=== PATIENT | female | born 1940 | race Caucasian/White ===

== ENCOUNTER → 2017-03-29 | Outpatient (REF) | payer MEDICARE ==
[~2017-03-29] MED LIST: ADV500INH INH; ALDA25TA4 PO; ALLE12TA31 PO; BENI1TAB PO; CALCTAB68 PO; DOCU10CA PO; LYRI75CA PO; MOBI4TAB PO; MULTCAP PO; PATA0.6S; PROT1TAB2 PO; SING10TA32 PO; ULTR50TA8 PO; VITA400T13 PO
== END ==
LOC: M SFHCPLAZ 15:52 → M LAB REF 15:52
PROVIDERS: ATTEND Family Medicine
DX: D04.30 Carcinoma in situ of skin of unspecified part of face (principal)

== ENCOUNTER → 2017-06-15 | Outpatient (REF) | payer MEDICARE | LOC: M SFHCPLAZ 11:31 | PROVIDERS: ATTEND Family Medicine | DX: Z85.828 Personal history of other malignant neoplasm of skin (principal) ==

== ENCOUNTER 2017-10-16 10:21 | Inpatient (IN) | payer OTHER, MEDICARE ==
[2017-10-16] MEDS: OLMESARTAN MEDOXOMIL 20 MG TAB (BENICAR) PO (09:00)
[2017-10-16] MEDS: NALOXONE INJ 0.4 MG/1 ML VIAL (J2310) IV (11:27)
[2017-10-16] MEDS: ADACEL/BOOSTRIX VACCINE (DIPHTH/PERTUSS/ACELL/TETANUS)0.5ML SYR (90715) IM (11:32)
[2017-10-16 11:39] LABS: BASO # 0.1 10^3/uL (0.0-0.2); BASO % 0.8 % (0.0-1.0); EOS # 0.2 10^3/uL (0.0-0.50); EOS % 1.3 % (0.0-3.0); HEMATOCRIT 36.3 % (36.0-47.0); HEMOGLOBIN 12.2 g/dl (12.0-16.0); IMMATURE GRANULOCYTE # 0.1 10^3/uL (0-0); LYMPH # 2.3 10^3/uL (1.5-4.5); LYMPH % 16.9 % (24.0-44.0); MEAN CORPUSCULAR HEMOGLOBIN 32.4 pg (27.0-33.0); MEAN CORPUSCULAR HGB CONC 33.6 g/dl (32.0-36.5); MEAN CORPUSCULAR VOLUME 96.3 fl (80.0-96.0); MONO # 1.2 10^3/uL (0.0-0.8); MONO % 9.1 % (0.0-5.0); NEUTROPHILS # 9.7 10^3/uL (1.8-7.7); NEUTROPHILS % 70.9 % (36.0-66.0); PLATELET COUNT, AUTOMATED 379 10^3/uL (150-450); RED BLOOD COUNT 3.77 10^6/uL (4.00-5.40); RED CELL DISTRIBUTION WIDTH 13.6 % (11.5-14.5); WHITE BLOOD COUNT 13.6 10^3/uL (4.0-10.0)
[2017-10-16 11:50] LABS: INR 0.99; PARTIAL THROMBOPLASTIN TIME 28.6 SECONDS (26.8-37.9); PROTHROMBIN TIME 13.2 SECONDS (12.4-14.5)
[2017-10-16 12:03] LABS: ALBUMIN 3.3 GM/DL (3.2-5.2); ALBUMIN/GLOBULIN RATIO 0.87 (1.00-1.93); ALKALINE PHOSPHATASE 49 U/L (45-117); ALT/SGPT 21 U/L (12-78); ANION GAP 7 MEQ/L (8-16); AST/SGOT 37 U/L (7-37); BILIRUBIN,DIRECT 0.1 MG/DL (0.0-0.2); BILIRUBIN,TOTAL 0.4 MG/DL (0.2-1.0); BLOOD UREA NITROGEN 22 MG/DL (7-18); CALCIUM LEVEL 9.5 MG/DL (8.8-10.2); CARBON DIOXIDE LEVEL 29 MEQ/L (21-32); CHLORIDE LEVEL 102 MEQ/L (98-107); CREATININE FOR GFR 1.36 MG/DL (0.55-1.02); GLOMERULAR FILTRATION RATE 40.1 (>39); GLUCOSE, FASTING 95 MG/DL (83-110); POTASSIUM SERUM 3.8 MEQ/L (3.5-5.1); SODIUM LEVEL 138 MEQ/L (136-145); TOTAL PROTEIN 7.1 GM/DL (6.4-8.2)
[2017-10-16] MEDS ORDERED: ISOVUE-370 76% 100ML VIAL (Q9967) As Ordered (12:05)
[2017-10-16] MEDS: CEFAZOLIN SOD 1 GM in APPROPRIATE DILUENT 1 EA IV (15:00)
[2017-10-16] MEDS ORDERED: DOCUSATE SODIUM 100 MG CAP PO (15:00)
[2017-10-16] MEDS: NORCO, ANEXSIA 5/325MG TABLET (HYDROcodone/ACETAMINOPHEN) PO (16:54)
[2017-10-16] MEDS: MULTIVITAMINS/MINERALS THERAP 1 TAB PO (18:47)
[2017-10-16] MEDS: hydroCHLOROthiazide 25 MG TAB PO (18:47)
[2017-10-16] MEDS: ADVAIR HFA 230/21MCG INHALER INH (20:25)
[2017-10-16] MEDS: CALCIUM/VITAMIN D 500 MG TAB PO (21:30)
[2017-10-16] MEDS: VITAMIN D (CHOLECALCIFEROL) 400 INTERNATIONAL UNITS TAB PO (21:30)
[2017-10-16] MEDS: SENOKOT S TAB PO (21:30)
[2017-10-16] MEDS: CARVedilol 3.125 MG TAB PO (21:31)
[2017-10-16] MEDS: FLUTICASONE PROP 0.05% NASAL SPRAY 16 GM (FLONASE) (21:31)
[2017-10-16] MEDS: PREGABALIN 75 MG CAP(LYRICA) PO (21:31)
[2017-10-16] MEDS: PANTOPRAZOLE 40MG TAB (PROTONIX) PO (21:31)
[2017-10-17] MEDS: NORCO, ANEXSIA 5/325MG TABLET (HYDROcodone/ACETAMINOPHEN) PO ×2 (00:21→20:55)
[2017-10-17] MEDS: MONTELUKAST 10 MG TAB PO ×2 (05:08→20:55)
[2017-10-17 07:12] LABS: BEDSIDE GLUCOSE 132 MG/DL (83-110)
[2017-10-17] MEDS: ADVAIR HFA 230/21MCG INHALER INH ×2 (07:19→23:02)
[2017-10-17 08:25] LABS: TROPONIN I < 0.02 NG/ML (< 0.10)
[2017-10-17 08:25] LABS: CK-MB VALUE MASS 3.5 NG/ML (0.0-3.6)
[2017-10-17] MEDS: FLUTICASONE PROP 0.05% NASAL SPRAY 16 GM (FLONASE) ×2 (09:00→20:53)
[2017-10-17] MEDS: CARVedilol 3.125 MG TAB PO (09:00)
[2017-10-17] MEDS: CALCIUM/VITAMIN D 500 MG TAB PO ×2 (09:52→20:53)
[2017-10-17] MEDS: SENOKOT S TAB PO ×2 (09:52→20:56)
[2017-10-17] MEDS: VITAMIN D (CHOLECALCIFEROL) 400 INTERNATIONAL UNITS TAB PO ×2 (09:52→20:53)
[2017-10-17] MEDS: PREGABALIN 75 MG CAP(LYRICA) PO ×2 (09:52→20:53)
[2017-10-17] MEDS: MULTIVITAMINS/MINERALS THERAP 1 TAB PO (09:52)
[2017-10-17] MEDS: PANTOPRAZOLE 40MG TAB (PROTONIX) PO ×2 (09:52→20:55)
[2017-10-17] MEDS: ONDANSETRON 4MG/2ML VIAL (J2405) IV (09:54)
[2017-10-17 10:28] LABS: HEMATOCRIT 33.8 % (36.0-47.0); HEMOGLOBIN 11.2 g/dl (12.0-16.0); MEAN CORPUSCULAR HGB CONC 33.1 g/dl (32.0-36.5); MEAN CORPUSCULAR VOLUME 96.6 fl (80.0-96.0); PLATELET COUNT, AUTOMATED 362 10^3/uL (150-450); WHITE BLOOD COUNT 12.2 10^3/uL (4.0-10.0)
[2017-10-17] MEDS: OLMESARTAN MEDOXOMIL 20 MG TAB (BENICAR) PO (10:46)
[2017-10-17] MEDS: hydroCHLOROthiazide 25 MG TAB PO (10:47)
[2017-10-17] MEDS: NS 1,000 ML IV (11:21)
[2017-10-17] MEDS: ACETAMINOPHEN TAB 650MG DOSE (2X325MG) PO (11:21)
[2017-10-17 12:11] LABS: HEMOGLOBIN 9.7 g/dl (12.0-16.0)
[2017-10-17] MEDS: LR 1,000 ML IV ×2 (12:12→20:56)
[2017-10-17] MEDS ORDERED: ISOVUE-370 76% 100ML VIAL (Q9967) As Ordered (12:49)
[2017-10-17 16:08] LABS: HEMATOCRIT 28.4 % (36.0-47.0); HEMOGLOBIN 9.6 g/dl (12.0-16.0)
[2017-10-18] MEDS: ACETAMINOPHEN TAB 650MG DOSE (2X325MG) PO ×3 (01:37→17:15)
[2017-10-18] MEDS: NORCO, ANEXSIA 5/325MG TABLET (HYDROcodone/ACETAMINOPHEN) PO ×2 (06:35→20:40)
[2017-10-18] MEDS: ADVAIR HFA 230/21MCG INHALER INH ×2 (08:19→21:16)
[2017-10-18] MEDS: FLUTICASONE PROP 0.05% NASAL SPRAY 16 GM (FLONASE) ×2 (08:59→21:00)
[2017-10-18] MEDS: OLMESARTAN MEDOXOMIL 20 MG TAB (BENICAR) PO (09:00)
[2017-10-18] MEDS: VITAMIN D (CHOLECALCIFEROL) 400 INTERNATIONAL UNITS TAB PO ×2 (09:01→20:40)
[2017-10-18] MEDS: CALCIUM/VITAMIN D 500 MG TAB PO ×2 (09:01→20:40)
[2017-10-18] MEDS: SENOKOT S TAB PO ×2 (09:01→20:41)
[2017-10-18] MEDS: MULTIVITAMINS/MINERALS THERAP 1 TAB PO (09:02)
[2017-10-18] MEDS: PREGABALIN 75 MG CAP(LYRICA) PO ×2 (09:02→20:40)
[2017-10-18] MEDS: hydroCHLOROthiazide 25 MG TAB PO (09:02)
[2017-10-18] MEDS: PANTOPRAZOLE 40MG TAB (PROTONIX) PO ×2 (09:02→20:40)
[2017-10-18 09:04] LABS: HEMATOCRIT 22.3 % (36.0-47.0); MEAN CORPUSCULAR HEMOGLOBIN 32.4 pg (27.0-33.0); MEAN CORPUSCULAR HGB CONC 32.7 g/dl (32.0-36.5); MEAN CORPUSCULAR VOLUME 99.1 fl (80.0-96.0); PLATELET COUNT, AUTOMATED 263 10^3/uL (150-450); RED BLOOD COUNT 2.25 10^6/uL (4.00-5.40); RED CELL DISTRIBUTION WIDTH 14.2 % (11.5-14.5); WHITE BLOOD COUNT 13.9 10^3/uL (4.0-10.0)
[2017-10-18] MEDS: CARVedilol 3.125 MG TAB PO ×2 (09:10→21:00)
[2017-10-18] MEDS: INFLUENZA VIRUS VACCINE HIGH DOSE 0.5 ML SYRINGE (90662) IM (09:11)
[2017-10-18 09:24] LABS: HEMOGLOBIN 7.3 g/dl (12.0-16.0)
[2017-10-18 09:33] LABS: ANION GAP 8 MEQ/L (8-16); BLOOD UREA NITROGEN 81 MG/DL (7-18); CALCIUM LEVEL 8.3 MG/DL (8.8-10.2); CARBON DIOXIDE LEVEL 27 MEQ/L (21-32); CHLORIDE LEVEL 105 MEQ/L (98-107); CREATININE FOR GFR 1.36 MG/DL (0.55-1.02); GLOMERULAR FILTRATION RATE 40.1 (>39); GLUCOSE, FASTING 156 MG/DL (83-110); POTASSIUM SERUM 4.3 MEQ/L (3.5-5.1); SODIUM LEVEL 140 MEQ/L (136-145)
[2017-10-18 14:33] LABS: IMMEDIATE SPIN CROSSMATCH 1 2
[2017-10-18] MEDS: LR 1,000 ML IV (17:14)
[2017-10-18 18:16] LABS: HEMATOCRIT 31.4 % (36.0-47.0)
[2017-10-18 18:17] LABS: HEMOGLOBIN 10.7 g/dl (12.0-16.0)
[2017-10-18] MEDS: MONTELUKAST 10 MG TAB PO (20:40)
[2017-10-19] MEDS: NORCO, ANEXSIA 5/325MG TABLET (HYDROcodone/ACETAMINOPHEN) PO ×3 (00:46→16:53)
[2017-10-19] MEDS: MORPHINE 4 MG/ML 1ML SYRINGE IV (01:30)
[2017-10-19] MEDS: LR 1,000 ML IV ×3 (04:10→14:30)
[2017-10-19] MEDS: ADVAIR HFA 230/21MCG INHALER INH ×2 (08:11→20:12)
[2017-10-19] MEDS: PREGABALIN 75 MG CAP(LYRICA) PO ×2 (08:20→20:57)
[2017-10-19] MEDS: MULTIVITAMINS/MINERALS THERAP 1 TAB PO (08:20)
[2017-10-19] MEDS: PANTOPRAZOLE 40MG TAB (PROTONIX) PO ×2 (08:20→20:57)
[2017-10-19] MEDS: hydroCHLOROthiazide 25 MG TAB PO (08:20)
[2017-10-19] MEDS: CALCIUM/VITAMIN D 500 MG TAB PO ×2 (08:20→20:57)
[2017-10-19] MEDS: VITAMIN D (CHOLECALCIFEROL) 400 INTERNATIONAL UNITS TAB PO ×2 (08:21→20:57)
[2017-10-19] MEDS: CARVedilol 3.125 MG TAB PO ×2 (08:21→20:45)
[2017-10-19] MEDS: FLUTICASONE PROP 0.05% NASAL SPRAY 16 GM (FLONASE) ×2 (08:21→20:57)
[2017-10-19] MEDS: SENOKOT S TAB PO ×3 (08:21→20:57)
[2017-10-19] MEDS: OLMESARTAN MEDOXOMIL 20 MG TAB (BENICAR) PO (08:21)
[2017-10-19 08:51] LABS: HEMATOCRIT 27.8 % (36.0-47.0); HEMOGLOBIN 9.4 g/dl (12.0-16.0); MEAN CORPUSCULAR HEMOGLOBIN 30.5 pg (27.0-33.0); MEAN CORPUSCULAR HGB CONC 33.8 g/dl (32.0-36.5); MEAN CORPUSCULAR VOLUME 90.3 fl (80.0-96.0); PLATELET COUNT, AUTOMATED 201 10^3/uL (150-450); RED BLOOD COUNT 3.08 10^6/uL (4.00-5.40); RED CELL DISTRIBUTION WIDTH 16.2 % (11.5-14.5); WHITE BLOOD COUNT 11.6 10^3/uL (4.0-10.0)
[2017-10-19] MEDS ORDERED: PROPOFOL 200 MG/20 ML VIAL As Ordered (13:41)
[2017-10-19] MEDS ORDERED: LIDOCAINE 2% INJ 100 MG/5 ML SDV (FOR ANES.) As Ordered (13:41)
[2017-10-19] MEDS ORDERED: fentaNYL 100 MCG/2 ML INJECTION (J3010) IV (14:30)
[2017-10-19] MEDS ORDERED: ONDANSETRON 4MG/2ML VIAL (J2405) IV (14:30)
[2017-10-19] MEDS: ACETAMINOPHEN TAB 650MG DOSE (2X325MG) PO (20:56)
[2017-10-19] MEDS: MONTELUKAST 10 MG TAB PO (20:57)
[2017-10-20] MEDS: NORCO, ANEXSIA 5/325MG TABLET (HYDROcodone/ACETAMINOPHEN) PO ×4 (02:28→21:00)
[2017-10-20 06:26] LABS: HEMOGLOBIN 8.4 g/dl (12.0-16.0); MEAN CORPUSCULAR HEMOGLOBIN 31.1 pg (27.0-33.0); MEAN CORPUSCULAR HGB CONC 33.6 g/dl (32.0-36.5); MEAN CORPUSCULAR VOLUME 92.6 fl (80.0-96.0); PLATELET COUNT, AUTOMATED 193 10^3/uL (150-450); RED CELL DISTRIBUTION WIDTH 15.8 % (11.5-14.5); WHITE BLOOD COUNT 8.4 10^3/uL (4.0-10.0)
[2017-10-20 06:39] LABS: ANION GAP 7 MEQ/L (8-16); BLOOD UREA NITROGEN 37 MG/DL (7-18); CALCIUM LEVEL 8.2 MG/DL (8.8-10.2); CARBON DIOXIDE LEVEL 27 MEQ/L (21-32); CHLORIDE LEVEL 108 MEQ/L (98-107); CREATININE FOR GFR 1.09 MG/DL (0.55-1.02); GLOMERULAR FILTRATION RATE 51.8 (>39); GLUCOSE, FASTING 97 MG/DL (83-110); POTASSIUM SERUM 3.9 MEQ/L (3.5-5.1); SODIUM LEVEL 142 MEQ/L (136-145)
[2017-10-20] MEDS: ADVAIR HFA 230/21MCG INHALER INH ×2 (07:34→21:13)
[2017-10-20] MEDS: hydroCHLOROthiazide 25 MG TAB PO (08:34)
[2017-10-20] MEDS: PANTOPRAZOLE 40MG TAB (PROTONIX) PO ×2 (08:34→21:01)
[2017-10-20] MEDS: OLMESARTAN MEDOXOMIL 20 MG TAB (BENICAR) PO (08:34)
[2017-10-20] MEDS: FLUTICASONE PROP 0.05% NASAL SPRAY 16 GM (FLONASE) ×2 (08:35→20:59)
[2017-10-20] MEDS: MULTIVITAMINS/MINERALS THERAP 1 TAB PO (08:35)
[2017-10-20] MEDS: CALCIUM/VITAMIN D 500 MG TAB PO ×2 (08:35→21:01)
[2017-10-20] MEDS: PREGABALIN 75 MG CAP(LYRICA) PO ×2 (08:35→21:01)
[2017-10-20] MEDS: VITAMIN D (CHOLECALCIFEROL) 400 INTERNATIONAL UNITS TAB PO ×2 (08:35→21:00)
[2017-10-20] MEDS: SENOKOT S TAB PO ×3 (08:35→21:01)
[2017-10-20] MEDS: CARVedilol 3.125 MG TAB PO ×2 (08:35→21:02)
[2017-10-20] MEDS: MONTELUKAST 10 MG TAB PO (20:59)
[2017-10-21] MEDS: NORCO, ANEXSIA 5/325MG TABLET (HYDROcodone/ACETAMINOPHEN) PO (02:27)
[2017-10-21 06:11] LABS: BASO # 0.1 10^3/uL (0.0-0.2); BASO % 0.9 % (0.0-1.0); EOS # 0.5 10^3/uL (0.0-0.50); EOS % 4.6 % (0.0-3.0); HEMATOCRIT 26.4 % (36.0-47.0); HEMOGLOBIN 8.7 g/dl (12.0-16.0); IMMATURE GRANULOCYTE % 0.4 % (0-0); LYMPH # 2.5 10^3/uL (1.5-4.5); LYMPH % 24.6 % (24.0-44.0); MEAN CORPUSCULAR HEMOGLOBIN 30.9 pg (27.0-33.0); MEAN CORPUSCULAR VOLUME 93.6 fl (80.0-96.0); MONO # 1.4 10^3/uL (0.0-0.8); MONO % 13.7 % (0.0-5.0); NEUTROPHILS # 5.7 10^3/uL (1.8-7.7); NEUTROPHILS % 55.8 % (36.0-66.0); PLATELET COUNT, AUTOMATED 234 10^3/uL (150-450); RED BLOOD COUNT 2.82 10^6/uL (4.00-5.40); RED CELL DISTRIBUTION WIDTH 15.9 % (11.5-14.5); WHITE BLOOD COUNT 10.2 10^3/uL (4.0-10.0)
[2017-10-21 06:30] LABS: ALBUMIN 2.4 GM/DL (3.2-5.2); ALBUMIN/GLOBULIN RATIO 0.75 (1.00-1.93); ALKALINE PHOSPHATASE 38 U/L (45-117); ALT/SGPT 20 U/L (12-78); ANION GAP 6 MEQ/L (8-16); AST/SGOT 27 U/L (7-37); BILIRUBIN,TOTAL 0.5 MG/DL (0.2-1.0); BLOOD UREA NITROGEN 28 MG/DL (7-18); CALCIUM LEVEL 8.6 MG/DL (8.8-10.2); CARBON DIOXIDE LEVEL 29 MEQ/L (21-32); CHLORIDE LEVEL 107 MEQ/L (98-107); GLOMERULAR FILTRATION RATE 51.3 (>39); GLUCOSE, FASTING 101 MG/DL (83-110); POTASSIUM SERUM 3.8 MEQ/L (3.5-5.1); SODIUM LEVEL 142 MEQ/L (136-145); TOTAL PROTEIN 5.6 GM/DL (6.4-8.2)
[2017-10-21] MEDS: CARVedilol 3.125 MG TAB PO (07:24)
[2017-10-21] MEDS: ADVAIR HFA 230/21MCG INHALER INH (08:11)
[2017-10-21] MEDS: PREGABALIN 75 MG CAP(LYRICA) PO (08:12)
[2017-10-21] MEDS: PANTOPRAZOLE 40MG TAB (PROTONIX) PO (08:12)
[2017-10-21] MEDS: VITAMIN D (CHOLECALCIFEROL) 400 INTERNATIONAL UNITS TAB PO (08:12)
[2017-10-21] MEDS: hydroCHLOROthiazide 25 MG TAB PO (08:13)
[2017-10-21] MEDS: SENOKOT S TAB PO (08:13)
[2017-10-21] MEDS: MULTIVITAMINS/MINERALS THERAP 1 TAB PO (08:13)
[2017-10-21] MEDS: OLMESARTAN MEDOXOMIL 20 MG TAB (BENICAR) PO (08:13)
[2017-10-21] MEDS: CALCIUM/VITAMIN D 500 MG TAB PO (08:13)
[2017-10-21] MEDS: FLUTICASONE PROP 0.05% NASAL SPRAY 16 GM (FLONASE) (08:13)
== END 2017-10-21 14:28 | disposition home or self-care (01) | DRG 254 ==
LOC: M ED 10:21 → M ED INP 14:53 → M MSPAV 18:33
PROC: 0DJ08ZZ Inspection of Upper Intestinal Tract, Via Natural or Artificial Opening Endoscopic (ICD-10-PCS; principal; 2017-10-19 13:21)
PROC: 30233N1 Transfusion of Nonautologous Red Blood Cells into Peripheral Vein, Percutaneous Approach (ICD-10-PCS; 2017-10-19 13:38)
DX: S36.892A Contusion of other intra-abdominal organs, initial encounter (principal); D62 Acute posthemorrhagic anemia; N18.3 Chronic kidney disease, stage 3 (moderate); K25.9 Gastric ulcer, unspecified as acute or chronic, without hemorrhage or perforation; I12.9 Hypertensive chronic kidney disease with stage 1 through stage 4 chronic kidney disease, or unspecified chronic kidney disease; S61.402A Unspecified open wound of left hand, initial encounter; E78.00 Pure hypercholesterolemia, unspecified; K44.9 Diaphragmatic hernia without obstruction or gangrene; S50.12XA Contusion of left forearm, initial encounter; S60.222A Contusion of left hand, initial encounter; S00.531A Contusion of lip, initial encounter; V49.40XA Driver injured in collision with unspecified motor vehicles in traffic accident, initial encounter; Y92.410 Unspecified street and highway as the place of occurrence of the external cause; Y93.89 Activity, other specified; Z90.81 Acquired absence of spleen; Z79.82 Long term (current) use of aspirin; Z79.899 Other long term (current) drug therapy

== ENCOUNTER → 2017-10-25 | Outpatient (CLI) | payer OTHER, MEDICARE ==
[2017-10-25 15:49] LABS: BASO # 0.1 10^3/uL (0.0-0.2); BASO % 1.1 % (0.0-1.0); EOS # 0.4 10^3/uL (0.0-0.50); EOS % 3.5 % (0.0-3.0); HEMATOCRIT 30.7 % (36.0-47.0); HEMOGLOBIN 9.9 g/dl (12.0-16.0); IMMATURE GRANULOCYTE # 0.1 10^3/uL (0-0); IMMATURE GRANULOCYTE % 0.6 % (0-0); LYMPH % 19.7 % (24.0-44.0); MEAN CORPUSCULAR HEMOGLOBIN 30.7 pg (27.0-33.0); MEAN CORPUSCULAR HGB CONC 32.2 g/dl (32.0-36.5); MEAN CORPUSCULAR VOLUME 95.3 fl (80.0-96.0); MONO # 1.4 10^3/uL (0.0-0.8); MONO % 13.4 % (0.0-5.0); NEUTROPHILS # 6.4 10^3/uL (1.8-7.7); NEUTROPHILS % 61.7 % (36.0-66.0); PLATELET COUNT, AUTOMATED 494 10^3/uL (150-450); RED BLOOD COUNT 3.22 10^6/uL (4.00-5.40); RED CELL DISTRIBUTION WIDTH 15.9 % (11.5-14.5); WHITE BLOOD COUNT 10.3 10^3/uL (4.0-10.0)
== END ==
LOC: M LAB 15:24
DX: D64.9 Anemia, unspecified (principal)
CPT/HCPCS: 85025

== ENCOUNTER → 2017-10-30 | Outpatient (REF) | payer MEDICARE ==
[2017-10-30 20:41] LABS: HEMATOCRIT 33.5 % (36.0-47.0); HEMOGLOBIN 10.5 g/dl (12.0-16.0); MEAN CORPUSCULAR HEMOGLOBIN 31.3 pg (27.0-33.0); MEAN CORPUSCULAR HGB CONC 31.3 g/dl (32.0-36.5); PLATELET COUNT, AUTOMATED 652 10^3/uL (150-450); RED BLOOD COUNT 3.35 10^6/uL (4.00-5.40); RED CELL DISTRIBUTION WIDTH 16.2 % (11.5-14.5); RETIC HEMOGLOBIN EQUIVALENT 35.6 pg (24-36); RETICULOCYTE # 118.9 10^9/L (17-77); RETICULOCYTE % 3.6 % (0.5-1.5); WHITE BLOOD COUNT 10.7 10^3/uL (4.0-10.0)
[2017-10-30 20:59] LABS: ANION GAP 7 MEQ/L (8-16); BLOOD UREA NITROGEN 18 MG/DL (7-18); CALCIUM LEVEL 9.2 MG/DL (8.8-10.2); CARBON DIOXIDE LEVEL 30 MEQ/L (21-32); CHLORIDE LEVEL 100 MEQ/L (98-107); CREATININE FOR GFR 1.56 MG/DL (0.55-1.30); FERRITIN 141 NG/ML (8-252); GLOMERULAR FILTRATION RATE 34.3 (>39); GLUCOSE, FASTING 116 MG/DL (70-100); IRON (FE) 60 UG/DL (50-170); PERCENT SATURATION 21.5 % (13.2-45.0); POTASSIUM SERUM 4.2 MEQ/L (3.5-5.1); SODIUM LEVEL 137 MEQ/L (136-145); TOTAL IRON BINDING CAPACITY 279 UG/DL (250-450)
== END ==
LOC: M SFHCADAM 15:06
DX: D62 Acute posthemorrhagic anemia (principal); N18.3 Chronic kidney disease, stage 3 (moderate)
CPT/HCPCS: 83550

== ENCOUNTER 2017-11-07 11:13 | Inpatient (IN) | payer MEDICARE ==
[2017-11-07] MEDS: NS 1,000 ML IV ×4 (11:45→23:45)
[2017-11-07 12:13] LABS: BASO # 0.1 10^3/uL (0.0-0.2); BASO % 1.1 % (0.0-1.0); EOS % 0.3 % (0.0-3.0); HEMATOCRIT 27.9 % (36.0-47.0); HEMOGLOBIN 8.9 g/dl (12.0-16.0); IMMATURE GRANULOCYTE # 0.1 10^3/uL (0-0); IMMATURE GRANULOCYTE % 0.5 % (0-0); LYMPH # 1.7 10^3/uL (1.5-4.5); LYMPH % 14.9 % (24.0-44.0); MEAN CORPUSCULAR HEMOGLOBIN 30.9 pg (27.0-33.0); MEAN CORPUSCULAR HGB CONC 31.9 g/dl (32.0-36.5); MEAN CORPUSCULAR VOLUME 96.9 fl (80.0-96.0); MONO # 0.9 10^3/uL (0.0-0.8); MONO % 7.6 % (0.0-5.0); NEUTROPHILS # 8.8 10^3/uL (1.8-7.7); NEUTROPHILS % 75.6 % (36.0-66.0); PLATELET COUNT, AUTOMATED 490 10^3/uL (150-450); RED BLOOD COUNT 2.88 10^6/uL (4.00-5.40); WHITE BLOOD COUNT 11.7 10^3/uL (4.0-10.0)
[2017-11-07 12:22] LABS: INR 1.11; PROTHROMBIN TIME 14.5 SECONDS (12.4-14.5)
[2017-11-07 12:23] LABS: PARTIAL THROMBOPLASTIN TIME 36.7 SECONDS (26.8-37.9)
[2017-11-07 12:33] LABS: ALBUMIN 2.6 GM/DL (3.2-5.2); ALBUMIN/GLOBULIN RATIO 0.65 (1.00-1.93); ALT/SGPT 13 U/L (12-78); AMYLASE 42 U/L (25-115); ANION GAP 9 MEQ/L (8-16); AST/SGOT 21 U/L (7-37); BILIRUBIN,DIRECT < 0.1 MG/DL (0.0-0.2); BILIRUBIN,TOTAL 0.3 MG/DL (0.2-1.0); BLOOD UREA NITROGEN 66 MG/DL (7-18); CALCIUM LEVEL 8.9 MG/DL (8.8-10.2); CARBON DIOXIDE LEVEL 26 MEQ/L (21-32); CHLORIDE LEVEL 104 MEQ/L (98-107); GLOMERULAR FILTRATION RATE 42.3 (>39); GLUCOSE, FASTING 125 MG/DL (70-100); LIPASE 188 U/L (73-393); POTASSIUM SERUM 4.8 MEQ/L (3.5-5.1); SODIUM LEVEL 139 MEQ/L (136-145); TOTAL PROTEIN 6.6 GM/DL (6.4-8.2); TROPONIN I < 0.02 NG/ML (< 0.10)
[2017-11-07 12:34] LABS: ALKALINE PHOSPHATASE 91 U/L (45-117); CPK CREATINE PHOSPHOKINASE 44 U/L (26-192); MB/CK RELATIVE INDEX 2.27 (< OR =4)
[2017-11-07 12:37] LABS: LACTIC ACID SEPSIS PROTOCOL 2.9 MMOL/L (0.4-2.0)
[2017-11-07] MEDS ORDERED: ISOVUE-370 76% 100ML VIAL (Q9967) As Ordered (12:37)
[2017-11-07 12:46] LABS: IMMEDIATE SPIN CROSSMATCH 1 2
[2017-11-07 17:03] LABS: HEMOGLOBIN 9.9 g/dl (12.0-16.0)
[2017-11-07 17:16] LABS: ANION GAP 10 MEQ/L (8-16); BLOOD UREA NITROGEN 79 MG/DL (7-18); CALCIUM LEVEL 8.4 MG/DL (8.8-10.2); CARBON DIOXIDE LEVEL 24 MEQ/L (21-32); CHLORIDE LEVEL 106 MEQ/L (98-107); CREATININE FOR GFR 1.21 MG/DL (0.55-1.30); GLOMERULAR FILTRATION RATE 45.9 (>39); GLUCOSE, FASTING 146 MG/DL (70-100); POTASSIUM SERUM 4.6 MEQ/L (3.5-5.1); SODIUM LEVEL 140 MEQ/L (136-145)
[2017-11-07] MEDS: traMADol 50 MG TAB PO (17:42)
[2017-11-07] MEDS: CIPROFLOXACIN 400 MG in APPROPRIATE DILUENT 1 EA IV (17:45)
[2017-11-07] MEDS ORDERED: NS 1,000 ML IV (18:15)
[2017-11-07] MEDS: MORPHINE 2 MG/ML 1ML SYRINGE (J2270) IV (18:51)
[2017-11-07] MEDS: metroNIDAZOLE 500 MG in APPROPRIATE DILUENT 1 EA IV (19:37)
[2017-11-07] MEDS: ADVAIR HFA 230/21MCG INHALER INH (20:22)
[2017-11-07] MEDS: PANTOPRAZOLE 40MG INJ (PROTONIX) (C9113) IV (22:30)
[2017-11-07] MEDS: MONTELUKAST 10 MG TAB PO (22:31)
[2017-11-07] MEDS: FLUTICASONE PROP 0.05% NASAL SPRAY 16 GM (FLONASE) (22:31)
[2017-11-08] MEDS: traMADol 50 MG TAB PO ×2 (00:40→20:16)
[2017-11-08 00:49] LABS: HEMOGLOBIN 7.6 g/dl (12.0-16.0)
[2017-11-08] MEDS: NS 1,000 ML IV ×3 (02:03→17:37)
[2017-11-08] MEDS: metroNIDAZOLE 500 MG in APPROPRIATE DILUENT 1 EA IV ×3 (02:30→18:44)
[2017-11-08] MEDS: MORPHINE 2 MG/ML 1ML SYRINGE (J2270) IV ×3 (02:30→07:00)
[2017-11-08 05:10] LABS: HEMOGLOBIN 6.9 g/dl (12.0-16.0)
[2017-11-08 05:29] LABS: LACTIC ACID SEPSIS PROTOCOL 1.2 MMOL/L (0.4-2.0)
[2017-11-08] MEDS: CIPROFLOXACIN 400 MG in APPROPRIATE DILUENT 1 EA IV ×2 (06:33→17:37)
[2017-11-08 07:30] LABS: ANION GAP 12 MEQ/L (8-16); BLOOD UREA NITROGEN 96 MG/DL (7-18); CALCIUM LEVEL 7.4 MG/DL (8.8-10.2); CARBON DIOXIDE LEVEL 20 MEQ/L (21-32); CHLORIDE LEVEL 112 MEQ/L (98-107); CREATININE FOR GFR 1.47 MG/DL (0.55-1.30); GLOMERULAR FILTRATION RATE 36.7 (>39); GLUCOSE, FASTING 150 MG/DL (70-100); POTASSIUM SERUM 4.3 MEQ/L (3.5-5.1); SODIUM LEVEL 144 MEQ/L (136-145)
[2017-11-08 07:39] LABS: HEMATOCRIT 21.2 % (36.0-47.0); MEAN CORPUSCULAR HEMOGLOBIN 30.8 pg (27.0-33.0); MEAN CORPUSCULAR HGB CONC 32.5 g/dl (32.0-36.5); MEAN CORPUSCULAR VOLUME 94.6 fl (80.0-96.0); RED BLOOD COUNT 2.24 10^6/uL (4.00-5.40); RED CELL DISTRIBUTION WIDTH 16.5 % (11.5-14.5); WHITE BLOOD COUNT 10.8 10^3/uL (4.0-10.0)
[2017-11-08 07:57] LABS: PLATELET COUNT, AUTOMATED 310 10^3/uL (150-450)
[2017-11-08] MEDS: FLUTICASONE PROP 0.05% NASAL SPRAY 16 GM (FLONASE) ×2 (09:00→20:17)
[2017-11-08] MEDS: ADVAIR HFA 230/21MCG INHALER INH ×2 (09:00→19:58)
[2017-11-08] MEDS: PANTOPRAZOLE 40MG INJ (PROTONIX) (C9113) IV ×2 (09:56→20:16)
[2017-11-08] MEDS: ONDANSETRON 4MG/2ML VIAL (J2405) IV (09:57)
[2017-11-08 11:05] LABS: IMMEDIATE SPIN CROSSMATCH 1 2
[2017-11-08] MEDS: GOLYTELY SOLN 4000 ML BTL PO (11:52)
[2017-11-08 15:11] LABS: HEMOGLOBIN 9.2 g/dl (12.0-16.0)
[2017-11-08 18:31] LABS: ANION GAP 11 MEQ/L (8-16); BLOOD UREA NITROGEN 84 MG/DL (7-18); CALCIUM LEVEL 7.4 MG/DL (8.8-10.2); CARBON DIOXIDE LEVEL 19 MEQ/L (21-32); CHLORIDE LEVEL 114 MEQ/L (98-107); CREATININE FOR GFR 1.45 MG/DL (0.55-1.30); GLOMERULAR FILTRATION RATE 37.3 (>39); GLUCOSE, FASTING 116 MG/DL (70-100); POTASSIUM SERUM 3.7 MEQ/L (3.5-5.1); SODIUM LEVEL 144 MEQ/L (136-145)
[2017-11-08] MEDS: MONTELUKAST 10 MG TAB PO (20:16)
[2017-11-08 20:58] LABS: HEMOGLOBIN 8.5 g/dl (12.0-16.0)
[2017-11-09] MEDS: MORPHINE 2 MG/ML 1ML SYRINGE (J2270) IV ×2 (00:46→05:59)
[2017-11-09] MEDS: metroNIDAZOLE 500 MG in APPROPRIATE DILUENT 1 EA IV ×3 (02:10→18:02)
[2017-11-09] MEDS: NS 1,000 ML IV ×2 (02:10→08:55)
[2017-11-09 03:18] LABS: HEMATOCRIT 23.7 % (36.0-47.0); HEMOGLOBIN 7.9 g/dl (12.0-16.0); MEAN CORPUSCULAR HEMOGLOBIN 29.8 pg (27.0-33.0); MEAN CORPUSCULAR HGB CONC 33.3 g/dl (32.0-36.5); MEAN CORPUSCULAR VOLUME 89.4 fl (80.0-96.0); PLATELET COUNT, AUTOMATED 202 10^3/uL (150-450); RED BLOOD COUNT 2.65 10^6/uL (4.00-5.40); RED CELL DISTRIBUTION WIDTH 16.4 % (11.5-14.5); WHITE BLOOD COUNT 13.8 10^3/uL (4.0-10.0)
[2017-11-09 03:28] LABS: ANION GAP 8 MEQ/L (8-16); BLOOD UREA NITROGEN 58 MG/DL (7-18); CALCIUM LEVEL 7.2 MG/DL (8.8-10.2); CARBON DIOXIDE LEVEL 21 MEQ/L (21-32); CHLORIDE LEVEL 118 MEQ/L (98-107); CREATININE FOR GFR 1.25 MG/DL (0.55-1.30); GLOMERULAR FILTRATION RATE 44.2 (>39); GLUCOSE, FASTING 117 MG/DL (70-100); POTASSIUM SERUM 3.2 MEQ/L (3.5-5.1); SODIUM LEVEL 147 MEQ/L (136-145)
[2017-11-09] MEDS: traMADol 50 MG TAB PO ×3 (04:06→18:23)
[2017-11-09] MEDS: CIPROFLOXACIN 400 MG in APPROPRIATE DILUENT 1 EA IV ×2 (05:51→17:13)
[2017-11-09 06:54] LABS: HEMOGLOBIN 7.8 g/dl (12.0-16.0)
[2017-11-09] MEDS: FLUTICASONE PROP 0.05% NASAL SPRAY 16 GM (FLONASE) ×2 (08:55→20:39)
[2017-11-09] MEDS: PANTOPRAZOLE 40MG INJ (PROTONIX) (C9113) IV ×2 (08:55→20:31)
[2017-11-09] MEDS: MORPHINE 4 MG/ML 1ML VIAL (J2270) IV ×4 (09:54→23:44)
[2017-11-09] MEDS: ADVAIR HFA 230/21MCG INHALER INH ×2 (10:20→20:49)
[2017-11-09] MEDS: KCL 20MEQ IN 0.45NS 1000ML 1,000 ML IV (10:28)
[2017-11-09 12:28] LABS: HEMOGLOBIN 9.1 g/dl (12.0-16.0)
[2017-11-09] MEDS ORDERED: PROPOFOL 200 MG/20 ML VIAL As Ordered ×2 (14:47→15:04)
[2017-11-09] MEDS ORDERED: LIDOCAINE 2% INJ 100 MG/5 ML SDV (FOR ANES.) As Ordered (14:47)
[2017-11-09] MEDS ORDERED: PHENYLephrine HCL 500 MCG/5 ML (100MCG/ML) SYRINGE (J2370) As Ordered (15:10)
[2017-11-09] MEDS: SUCRALFATE SUSP 1GM/10ML UD PO ×2 (16:38→20:31)
[2017-11-09] MEDS: MONTELUKAST 10 MG TAB PO (20:31)
[2017-11-10] MEDS: traMADol 50 MG TAB PO ×2 (00:33→16:16)
[2017-11-10] MEDS: MORPHINE 4 MG/ML 1ML VIAL (J2270) IV ×2 (01:50→17:19)
[2017-11-10] MEDS: metroNIDAZOLE 500 MG in APPROPRIATE DILUENT 1 EA IV ×3 (02:19→18:27)
[2017-11-10] MEDS: KCL 20MEQ IN 0.45NS 1000ML 1,000 ML IV (02:19)
[2017-11-10 04:24] LABS: HEMATOCRIT 25.4 % (36.0-47.0); HEMOGLOBIN 8.7 g/dl (12.0-16.0); MEAN CORPUSCULAR HEMOGLOBIN 31.1 pg (27.0-33.0); MEAN CORPUSCULAR HGB CONC 34.3 g/dl (32.0-36.5); MEAN CORPUSCULAR VOLUME 90.7 fl (80.0-96.0); PLATELET COUNT, AUTOMATED 172 10^3/uL (150-450); RED CELL DISTRIBUTION WIDTH 17.2 % (11.5-14.5); WHITE BLOOD COUNT 10.6 10^3/uL (4.0-10.0)
[2017-11-10 04:45] LABS: ANION GAP 9 MEQ/L (8-16); BLOOD UREA NITROGEN 25 MG/DL (7-18); CALCIUM LEVEL 7.5 MG/DL (8.8-10.2); CARBON DIOXIDE LEVEL 20 MEQ/L (21-32); CHLORIDE LEVEL 115 MEQ/L (98-107); CREATININE FOR GFR 0.94 MG/DL (0.55-1.30); GLOMERULAR FILTRATION RATE > 60.0 (>39); GLUCOSE, FASTING 107 MG/DL (70-100); POTASSIUM SERUM 3.3 MEQ/L (3.5-5.1); SODIUM LEVEL 144 MEQ/L (136-145)
[2017-11-10] MEDS: CIPROFLOXACIN 400 MG in APPROPRIATE DILUENT 1 EA IV ×2 (06:33→17:18)
[2017-11-10] MEDS: SUCRALFATE SUSP 1GM/10ML UD PO ×4 (06:34→21:04)
[2017-11-10] MEDS: ADVAIR HFA 230/21MCG INHALER INH ×2 (08:02→20:06)
[2017-11-10] MEDS: FLUTICASONE PROP 0.05% NASAL SPRAY 16 GM (FLONASE) ×2 (08:16→20:53)
[2017-11-10] MEDS: PANTOPRAZOLE 40MG INJ (PROTONIX) (C9113) IV ×2 (08:16→21:05)
[2017-11-10] MEDS: PREGABALIN 75 MG CAP(LYRICA) PO ×2 (08:16→21:05)
[2017-11-10] MEDS: POTASSIUM CHLORIDE 10 MEQ SR TABLET PO (15:27)
[2017-11-10] MEDS: MONTELUKAST 10 MG TAB PO (21:05)
[2017-11-11] MEDS: metroNIDAZOLE 500 MG in APPROPRIATE DILUENT 1 EA IV ×3 (03:17→18:40)
[2017-11-11] MEDS: traMADol 50 MG TAB PO ×3 (03:18→19:12)
[2017-11-11] MEDS: CIPROFLOXACIN 400 MG in APPROPRIATE DILUENT 1 EA IV ×2 (05:54→17:35)
[2017-11-11 06:46] LABS: HEMATOCRIT 24.1 % (36.0-47.0); HEMOGLOBIN 8.1 g/dl (12.0-16.0); MEAN CORPUSCULAR HEMOGLOBIN 30.9 pg (27.0-33.0); MEAN CORPUSCULAR HGB CONC 33.6 g/dl (32.0-36.5); PLATELET COUNT, AUTOMATED 163 10^3/uL (150-450); RED BLOOD COUNT 2.62 10^6/uL (4.00-5.40); RED CELL DISTRIBUTION WIDTH 16.7 % (11.5-14.5); WHITE BLOOD COUNT 12.2 10^3/uL (4.0-10.0)
[2017-11-11 07:08] LABS: ANION GAP 7 MEQ/L (8-16); BLOOD UREA NITROGEN 10 MG/DL (7-18); CALCIUM LEVEL 7.6 MG/DL (8.8-10.2); CARBON DIOXIDE LEVEL 22 MEQ/L (21-32); CHLORIDE LEVEL 115 MEQ/L (98-107); CREATININE FOR GFR 0.92 MG/DL (0.55-1.30); GLOMERULAR FILTRATION RATE > 60.0 (>39); GLUCOSE, FASTING 129 MG/DL (70-100); SODIUM LEVEL 144 MEQ/L (136-145)
[2017-11-11] MEDS: ADVAIR HFA 230/21MCG INHALER INH ×2 (07:58→20:45)
[2017-11-11] MEDS: PREGABALIN 75 MG CAP(LYRICA) PO ×2 (08:33→20:03)
[2017-11-11] MEDS: FLUTICASONE PROP 0.05% NASAL SPRAY 16 GM (FLONASE) ×2 (08:33→20:03)
[2017-11-11] MEDS: PANTOPRAZOLE 40MG INJ (PROTONIX) (C9113) IV ×2 (08:33→20:03)
[2017-11-11] MEDS: SUCRALFATE SUSP 1GM/10ML UD PO ×4 (08:33→20:03)
[2017-11-11] MEDS: POTASSIUM CHLORIDE 10 MEQ SR TABLET PO (11:22)
[2017-11-11 12:42] LABS: HEMATOCRIT 26.9 % (36.0-47.0)
[2017-11-11] MEDS: POTASSIUM CHLORIDE 10% LIQ 20 MEQ/15 ML UDC PO (13:47)
[2017-11-11] MEDS: MONTELUKAST 10 MG TAB PO (20:03)
[2017-11-12] MEDS: traMADol 50 MG TAB PO ×4 (02:34→18:38)
[2017-11-12] MEDS: metroNIDAZOLE 500 MG in APPROPRIATE DILUENT 1 EA IV ×2 (02:34→11:35)
[2017-11-12 05:27] LABS: HEMOGLOBIN 8.3 g/dl (12.0-16.0); MEAN CORPUSCULAR HEMOGLOBIN 30.7 pg (27.0-33.0); MEAN CORPUSCULAR HGB CONC 33.2 g/dl (32.0-36.5); MEAN CORPUSCULAR VOLUME 92.6 fl (80.0-96.0); PLATELET COUNT, AUTOMATED 186 10^3/uL (150-450); RED CELL DISTRIBUTION WIDTH 17.5 % (11.5-14.5); WHITE BLOOD COUNT 14.2 10^3/uL (4.0-10.0)
[2017-11-12 05:44] LABS: ANION GAP 6 MEQ/L (8-16); BLOOD UREA NITROGEN 6 MG/DL (7-18); CALCIUM LEVEL 7.7 MG/DL (8.8-10.2); CARBON DIOXIDE LEVEL 22 MEQ/L (21-32); CHLORIDE LEVEL 113 MEQ/L (98-107); CREATININE FOR GFR 0.85 MG/DL (0.55-1.30); GLOMERULAR FILTRATION RATE > 60.0 (>39); GLUCOSE, FASTING 102 MG/DL (70-100); POTASSIUM SERUM 3.3 MEQ/L (3.5-5.1); SODIUM LEVEL 141 MEQ/L (136-145)
[2017-11-12] MEDS: CIPROFLOXACIN 400 MG in APPROPRIATE DILUENT 1 EA IV (06:13)
[2017-11-12] MEDS: SUCRALFATE SUSP 1GM/10ML UD PO ×4 (08:01→21:41)
[2017-11-12] MEDS: PANTOPRAZOLE 40MG INJ (PROTONIX) (C9113) IV (08:01)
[2017-11-12] MEDS: PREGABALIN 75 MG CAP(LYRICA) PO ×2 (08:01→21:37)
[2017-11-12] MEDS: ADVAIR HFA 230/21MCG INHALER INH ×2 (08:23→20:20)
[2017-11-12] MEDS: FLUTICASONE PROP 0.05% NASAL SPRAY 16 GM (FLONASE) ×2 (09:34→21:00)
[2017-11-12] MEDS: POTASSIUM CHLORIDE 10% LIQ 20 MEQ/15 ML UDC PO (10:01)
[2017-11-12] MEDS ORDERED: SLF 3 ML SYR IV (11:00)
[2017-11-12] MEDS: SLF 3 ML SYR IV ×2 (12:31→22:00)
[2017-11-12] MEDS: CIPROFLOXACIN 500 MG TAB PO (17:30)
[2017-11-12] MEDS: MONTELUKAST 10 MG TAB PO (21:37)
[2017-11-12] MEDS: metroNIDAZOLE (FLAGYL) 500 MG TAB PO (21:37)
[2017-11-12] MEDS: ACETAMINOPHEN TAB 650MG DOSE (2X325MG) PO (21:38)
[2017-11-13] MEDS: SLF 3 ML SYR IV ×2 (05:05→11:44)
[2017-11-13] MEDS: CIPROFLOXACIN 500 MG TAB PO ×2 (05:09→17:40)
[2017-11-13] MEDS: metroNIDAZOLE (FLAGYL) 500 MG TAB PO ×2 (05:09→14:43)
[2017-11-13 05:50] LABS: HEMATOCRIT 24.1 % (36.0-47.0); HEMOGLOBIN 7.9 g/dl (12.0-16.0); MEAN CORPUSCULAR HEMOGLOBIN 30.7 pg (27.0-33.0); MEAN CORPUSCULAR HGB CONC 32.8 g/dl (32.0-36.5); MEAN CORPUSCULAR VOLUME 93.8 fl (80.0-96.0); PLATELET COUNT, AUTOMATED 195 10^3/uL (150-450); RED BLOOD COUNT 2.57 10^6/uL (4.00-5.40); RED CELL DISTRIBUTION WIDTH 17.2 % (11.5-14.5); WHITE BLOOD COUNT 12.7 10^3/uL (4.0-10.0)
[2017-11-13 06:01] LABS: ANION GAP 8 MEQ/L (8-16); BLOOD UREA NITROGEN 6 MG/DL (7-18); CALCIUM LEVEL 7.5 MG/DL (8.8-10.2); CARBON DIOXIDE LEVEL 23 MEQ/L (21-32); CHLORIDE LEVEL 111 MEQ/L (98-107); CREATININE FOR GFR 0.76 MG/DL (0.55-1.30); GLOMERULAR FILTRATION RATE > 60.0 (>39); GLUCOSE, FASTING 96 MG/DL (70-100); POTASSIUM SERUM 3.4 MEQ/L (3.5-5.1); SODIUM LEVEL 142 MEQ/L (136-145)
[2017-11-13] MEDS: ADVAIR HFA 230/21MCG INHALER INH (08:31)
[2017-11-13] MEDS: ACETAMINOPHEN TAB 650MG DOSE (2X325MG) PO (09:20)
[2017-11-13] MEDS: PANTOPRAZOLE 40MG TAB (PROTONIX) PO (09:20)
[2017-11-13] MEDS: SUCRALFATE SUSP 1GM/10ML UD PO ×3 (09:20→17:40)
[2017-11-13] MEDS: PREGABALIN 75 MG CAP(LYRICA) PO (09:20)
[2017-11-13] MEDS: FLUTICASONE PROP 0.05% NASAL SPRAY 16 GM (FLONASE) (09:21)
[2017-11-13] MEDS: POTASSIUM CHLORIDE 10 MEQ SR TABLET PO (11:06)
[2017-11-13] MEDS: traMADol 50 MG TAB PO (11:07)
[2017-11-13 12:07] LABS: BASO # 0.1 10^3/uL (0.0-0.2); BASO % 0.7 % (0.0-1.0); EOS # 0.6 10^3/uL (0.0-0.50); EOS % 4.2 % (0.0-3.0); IMMATURE GRANULOCYTE % 0.8 % (0-3.0); LYMPH # 1.4 10^3/uL (1.5-4.5); MEAN CORPUSCULAR HEMOGLOBIN 31.3 pg (27.0-33.0); MEAN CORPUSCULAR HGB CONC 33.3 g/dl (32.0-36.5); MEAN CORPUSCULAR VOLUME 93.8 fl (80.0-96.0); NEUTROPHILS # 9.6 10^3/uL (1.8-7.7); NEUTROPHILS % 68.3 % (36.0-66.0); PLATELET COUNT, AUTOMATED 222 10^3/uL (150-450); RED BLOOD COUNT 2.88 10^6/uL (4.00-5.40); RED CELL DISTRIBUTION WIDTH 17.2 % (11.5-14.5)
[2017-11-13 12:30] LABS: MONO # 2.3 10^3/uL (0.0-0.8); POSITIVE DIFF POS FLAG
== END 2017-11-13 19:30 | disposition home or self-care (01) | DRG 378 ==
LOC: M MS4PR 11-10 16:20 → M PCU 11-11 14:14 → M MSPAV 11-12 17:29 → M ED 11:13 → M ED INP 13:54 → M ICU 15:20
PROC: 30233N1 Transfusion of Nonautologous Red Blood Cells into Peripheral Vein, Percutaneous Approach (ICD-10-PCS; principal; 2017-11-09 14:44)
PROC: 0DJ08ZZ Inspection of Upper Intestinal Tract, Via Natural or Artificial Opening Endoscopic (ICD-10-PCS; 2017-11-09 14:44)
PROC: 0DJD8ZZ Inspection of Lower Intestinal Tract, Via Natural or Artificial Opening Endoscopic (ICD-10-PCS; 2017-11-09 14:44)
DX: K29.71 Gastritis, unspecified, with bleeding (principal); E87.2 Acidosis; E87.0 Hyperosmolality and hypernatremia; I50.32 Chronic diastolic (congestive) heart failure; D62 Acute posthemorrhagic anemia; N17.9 Acute kidney failure, unspecified; I13.0 Hypertensive heart and chronic kidney disease with heart failure and stage 1 through stage 4 chronic kidney disease, or unspecified chronic kidney disease; K29.81 Duodenitis with bleeding; E87.6 Hypokalemia; J45.20 Mild intermittent asthma, uncomplicated; Z79.899 Other long term (current) drug therapy; G62.9 Polyneuropathy, unspecified; K44.9 Diaphragmatic hernia without obstruction or gangrene; I95.9 Hypotension, unspecified; R00.0 Tachycardia, unspecified; K64.8 Other hemorrhoids; K57.30 Diverticulosis of large intestine without perforation or abscess without bleeding; N18.3 Chronic kidney disease, stage 3 (moderate); Z79.82 Long term (current) use of aspirin; Z86.73 Personal history of transient ischemic attack (TIA), and cerebral infarction without residual deficits; Z85.038 Personal history of other malignant neoplasm of large intestine; M54.5 Low back pain; Z90.81 Acquired absence of spleen; Z87.891 Personal history of nicotine dependence; N28.1 Cyst of kidney, acquired

== ENCOUNTER → 2017-11-21 | Outpatient (REF) | payer MEDICARE | LOC: M SFHCADAM 09:41 | DX: D50.0 Iron deficiency anemia secondary to blood loss (chronic) (principal); K29.01 Acute gastritis with bleeding; R60.0 Localized edema; Z53.9 Procedure and treatment not carried out, unspecified reason ==

== ENCOUNTER → 2017-11-23 | Outpatient (CLI) | payer MEDICARE ==
[2017-11-23 17:07] LABS: HEMATOCRIT 32.5 % (36.0-47.0); HEMOGLOBIN 10.3 g/dl (12.0-16.0); MEAN CORPUSCULAR HEMOGLOBIN 30.4 pg (27.0-33.0); MEAN CORPUSCULAR HGB CONC 31.7 g/dl (32.0-36.5); MEAN CORPUSCULAR VOLUME 95.9 fl (80.0-96.0); PLATELET COUNT, AUTOMATED 556 10^3/uL (150-450); RED BLOOD COUNT 3.39 10^6/uL (4.00-5.40); RED CELL DISTRIBUTION WIDTH 15.9 % (11.5-14.5); WHITE BLOOD COUNT 8.2 10^3/uL (4.0-10.0)
[2017-11-23 17:22] LABS: POS COUNT POS FLAG; RETIC HEMOGLOBIN EQUIVALENT 31.6 pg (24-36); RETICULOCYTE # 80.7 10^9/L (17-77); RETICULOCYTE % 2.5 % (0.5-1.5)
[2017-11-23 17:55] LABS: ANION GAP 5 MEQ/L (8-16); BLOOD UREA NITROGEN 13 MG/DL (7-18); CALCIUM LEVEL 8.5 MG/DL (8.8-10.2); CARBON DIOXIDE LEVEL 31 MEQ/L (21-32); CHLORIDE LEVEL 101 MEQ/L (98-107); CREATININE FOR GFR 1.17 MG/DL (0.55-1.30); FERRITIN 126 NG/ML (8-252); GLOMERULAR FILTRATION RATE 47.7 (>39); GLUCOSE, FASTING 79 MG/DL (70-100); IRON (FE) 27 UG/DL (50-170); PERCENT SATURATION 12.7 % (13.2-45.0); SODIUM LEVEL 137 MEQ/L (136-145); TOTAL IRON BINDING CAPACITY 212 UG/DL (250-450)
[2017-11-23 18:03] LABS: POTASSIUM SERUM 5.3 MEQ/L (3.5-5.1)
== END ==
LOC: M WUC 15:12
DX: D50.0 Iron deficiency anemia secondary to blood loss (chronic) (principal); R60.0 Localized edema
CPT/HCPCS: 83550

== ENCOUNTER → 2018-01-16 | Outpatient (CLI) | payer MEDICARE ==
[2018-01-16 16:39] LABS: HEMATOCRIT 38.4 % (36.0-47.0); HEMOGLOBIN 12.3 g/dl (12.0-15.5); MEAN CORPUSCULAR HEMOGLOBIN 29.1 pg (27.0-33.0); MEAN CORPUSCULAR VOLUME 90.8 fl (80.0-96.0); PLATELET COUNT, AUTOMATED 506 10^3/uL (150-450); RED BLOOD COUNT 4.23 10^6/uL (4.00-5.40); RED CELL DISTRIBUTION WIDTH 14.2 % (11.5-14.5); RETIC HEMOGLOBIN EQUIVALENT 32.2 pg (24-36); RETICULOCYTE # 38.1 10^9/L (17-77); RETICULOCYTE % 0.9 % (0.5-1.5)
[2018-01-16 16:59] LABS: ALBUMIN 3.1 GM/DL (3.2-5.2); ALBUMIN/GLOBULIN RATIO 0.72 (1.00-1.93); ALKALINE PHOSPHATASE 81 U/L (45-117); ALT/SGPT 14 U/L (12-78); ANION GAP 6 MEQ/L (8-16); AST/SGOT 21 U/L (7-37); BILIRUBIN,TOTAL 0.2 MG/DL (0.2-1.0); BLOOD UREA NITROGEN 15 MG/DL (7-18); CALCIUM LEVEL 9.4 MG/DL (8.8-10.2); CARBON DIOXIDE LEVEL 33 MEQ/L (21-32); CHLORIDE LEVEL 100 MEQ/L (98-107); CREATININE FOR GFR 1.24 MG/DL (0.55-1.30); FERRITIN 33 NG/ML (8-252); GLOMERULAR FILTRATION RATE 44.5 (>39); GLUCOSE, FASTING 83 MG/DL (70-100); IRON (FE) 58 UG/DL (50-170); PERCENT SATURATION 19.3 % (13.2-45.0); POTASSIUM SERUM 4.5 MEQ/L (3.5-5.1); SODIUM LEVEL 139 MEQ/L (136-145); TOTAL IRON BINDING CAPACITY 300 UG/DL (250-450); TOTAL PROTEIN 7.4 GM/DL (6.4-8.2)
== END ==
LOC: M WUC 12:18
DX: N18.3 Chronic kidney disease, stage 3 (moderate) (principal); D50.0 Iron deficiency anemia secondary to blood loss (chronic)
CPT/HCPCS: 83550

== ENCOUNTER → 2018-06-17 | Outpatient (CLI) | payer MEDICARE ==
[2018-06-17 13:17] LABS: HEMATOCRIT 40.6 % (36.0-47.0); HEMOGLOBIN 13.4 g/dl (12.0-15.5); PLATELET COUNT, AUTOMATED 250 10^3/uL (150-450); RED BLOOD COUNT 4.32 10^6/uL (4.00-5.40); RED CELL DISTRIBUTION WIDTH 13.7 % (11.5-14.5); WHITE BLOOD COUNT 8.4 10^3/uL (4.0-10.0)
[2018-06-17 14:01] LABS: ALBUMIN 3.3 GM/DL (3.2-5.2); ALBUMIN/GLOBULIN RATIO 0.85 (1.00-1.93); ALKALINE PHOSPHATASE 66 U/L (45-117); ALT/SGPT 15 U/L (12-78); ANION GAP 9 MEQ/L (8-16); AST/SGOT 26 U/L (7-37); BILIRUBIN,TOTAL 0.6 MG/DL (0.2-1.0); BLOOD UREA NITROGEN 24 MG/DL (7-18); CALCIUM LEVEL 9.6 MG/DL (8.8-10.2); CARBON DIOXIDE LEVEL 28 MEQ/L (21-32); CHLORIDE LEVEL 104 MEQ/L (98-107); CHOLESTEROL LEVEL 237 MG/DL (<200); CHOLESTEROL RISK RATIO 3.077 (<5); CREATININE FOR GFR 1.18 MG/DL (0.55-1.30); GLOMERULAR FILTRATION RATE 47.2 (>39); GLUCOSE, FASTING 85 MG/DL (70-100); HDL CHOLESTEROL 77 MG/DL (>40); LDL CHOLESTEROL 140 MG/DL (<100); NON-HDL-C 160 MG/DL; POTASSIUM SERUM 4.2 MEQ/L (3.5-5.1); SODIUM LEVEL 141 MEQ/L (136-145); TOTAL PROTEIN 7.2 GM/DL (6.4-8.2); TRIGLYCERIDES LEVEL 102 MG/DL (<150)
== END ==
LOC: M WUC 10:08
DX: D50.9 Iron deficiency anemia, unspecified (principal); N18.3 Chronic kidney disease, stage 3 (moderate); E78.2 Mixed hyperlipidemia
CPT/HCPCS: 80053

== ENCOUNTER → 2019-05-29 | Outpatient (CLI) | payer MEDICARE ==
[~2019-05-29] MED LIST changes: +ASPI1TAB15 PO; -BENI1TAB PO; +BENI1TAB3 PO; +CARV3.12 PO; +CIPR-249 PO; +FLAG500T PO; +FLUN25SP; +HYDR25TAB PO; +IRON27TA2 PO; +PANT40TA3 PO; +SUCR10SS PO; +VITMTA PO
[2019-05-29 13:21] LABS: HEMATOCRIT 42.4 % (36.0-47.0); HEMOGLOBIN 14.2 g/dl (12.0-15.5); MEAN CORPUSCULAR HEMOGLOBIN 30.9 pg (27.0-33.0); MEAN CORPUSCULAR HGB CONC 33.5 g/dl (32.0-36.5); MEAN CORPUSCULAR VOLUME 92.4 fl (80.0-96.0); PLATELET COUNT, AUTOMATED 336 10^3/uL (150-450); RED BLOOD COUNT 4.59 10^6/uL (4.00-5.40); WHITE BLOOD COUNT 8.4 10^3/uL (4.0-10.0)
[2019-05-29 13:53] LABS: ALBUMIN 3.6 GM/DL (3.2-5.2); BILIRUBIN,TOTAL 0.5 MG/DL (0.2-1.0); CHOLESTEROL RISK RATIO 2.654 (<5); CREATININE FOR GFR 1.25 MG/DL (0.55-1.30); PERCENT SATURATION 30.7 % (13.2-45.0); POTASSIUM SERUM 4.1 MEQ/L (3.5-5.1); TOTAL PROTEIN 7.1 GM/DL (6.4-8.2)
== END ==
LOC: M WUC 10:14
PROVIDERS: ATTEND Family Medicine
DX: N18.3 Chronic kidney disease, stage 3 (moderate) (principal); D50.9 Iron deficiency anemia, unspecified; I11.9 Hypertensive heart disease without heart failure; E78.2 Mixed hyperlipidemia

== ENCOUNTER → 2020-03-04 | Outpatient (REF) | payer MEDICARE ==
[~2020-03-04] MED LIST changes: +ASPI-546 PO; -ASPI1TAB15 PO; +PANT40TA29 PO; -PANT40TA3 PO; -SUCR10SS PO; +SUCR1ORA2 PO
[2020-03-04 16:33] LABS: HEMATOCRIT 43.4 % (36.0-47.0); HEMOGLOBIN 14.5 g/dl (12.0-15.5); MEAN CORPUSCULAR HEMOGLOBIN 31.5 pg (27.0-33.0); MEAN CORPUSCULAR HGB CONC 33.4 g/dl (32.0-36.5); MEAN CORPUSCULAR VOLUME 94.3 fl (80.0-96.0); PLATELET COUNT, AUTOMATED 349 10^3/uL (150-450); WHITE BLOOD COUNT 8.5 10^3/uL (4.0-10.0)
[2020-03-04 16:57] LABS: ALBUMIN 3.4 GM/DL (3.2-5.2); BILIRUBIN,TOTAL 0.4 MG/DL (0.2-1.0); CALCIUM LEVEL 9.2 MG/DL (8.8-10.2); CHOLESTEROL RISK RATIO 2.833 (<5); CREATININE FOR GFR 1.23 MG/DL (0.55-1.30); GLOMERULAR FILTRATION RATE 44.7 (>32); MAGNESIUM LEVEL 1.9 MG/DL (1.8-2.4); PERCENT SATURATION 19.6 % (13.2-45.0); POTASSIUM SERUM 4.1 MEQ/L (3.5-5.1); TOTAL PROTEIN 7.4 GM/DL (6.4-8.2)
== END ==
LOC: M SFHCADAM 14:09
PROVIDERS: ATTEND Family Medicine
DX: N18.3 Chronic kidney disease, stage 3 (moderate) (principal); D50.9 Iron deficiency anemia, unspecified; I11.9 Hypertensive heart disease without heart failure; E78.2 Mixed hyperlipidemia
CPT/HCPCS: 80053; 80061; 82728; 83550; 83735; 85027; 85046; G0463

== ENCOUNTER → 2020-11-24 | Outpatient (REF) | payer MEDICARE ==
[~2020-11-24] MED LIST changes: +HYDR-3490 PO; -HYDR25TAB PO
[2020-11-24 14:03] LABS: HEMATOCRIT 49.1 % (36.0-47.0); HEMOGLOBIN 15.7 g/dl (12.0-15.5); MEAN CORPUSCULAR HEMOGLOBIN 30.5 pg (27.0-33.0); MEAN CORPUSCULAR VOLUME 95.5 fl (80.0-96.0); PLATELET COUNT, AUTOMATED 328 10^3/uL (150-450); RED BLOOD COUNT 5.14 10^6/uL (4.00-5.40); WHITE BLOOD COUNT 9.7 10^3/uL (4.0-10.0)
[2020-11-24 14:20] LABS: CALCIUM LEVEL 10.2 MG/DL (8.8-10.2); CREATININE FOR GFR 1.3 MG/DL (0.55-1.30); POTASSIUM SERUM 4.6 MEQ/L (3.5-5.1)
== END ==
LOC: M SFHCADAM 11:16
PROVIDERS: ATTEND Family Medicine
DX: D50.9 Iron deficiency anemia, unspecified (principal); N18.30 Chronic kidney disease, stage 3 unspecified
CPT/HCPCS: 80048; 85027; G0463

== ENCOUNTER → 2021-08-01 | Outpatient (REF) | payer MEDICARE | LOC: M LAB REF 17:26 | PROVIDERS: ATTEND Internal Medicine Nephrology | DX: E83.42 Hypomagnesemia (principal) ==

== ENCOUNTER → 2021-10-05 | Outpatient (CLI) | payer MEDICARE ==
[2021-10-05 10:24] LABS: HEMATOCRIT 44.4 % (36.0-47.0); HEMOGLOBIN 14.3 g/dl (12.0-15.5); MEAN CORPUSCULAR HEMOGLOBIN 29.8 pg (27.0-33.0); MEAN CORPUSCULAR HGB CONC 32.2 g/dl (32.0-36.5); MEAN CORPUSCULAR VOLUME 92.5 fl (80.0-96.0); PLATELET COUNT, AUTOMATED 248 10^3/uL (150-450); WHITE BLOOD COUNT 8.6 10^3/uL (4.0-10.0)
[2021-10-05 10:58] LABS: ALBUMIN 3.2 GM/DL (3.2-5.2); BILIRUBIN,TOTAL 0.6 MG/DL (0.2-1.0); CALCIUM LEVEL 9.7 MG/DL (8.8-10.2); CHOLESTEROL RISK RATIO 2.876 (<5); CREATININE FOR GFR 1.31 MG/DL (0.55-1.30); GLOMERULAR FILTRATION RATE 41.5 (>32); POTASSIUM SERUM 3.3 MEQ/L (3.5-5.1); TOTAL PROTEIN 6.9 GM/DL (6.4-8.2)
[2021-10-05 11:05] LABS: TOTAL 25(OH) VITAMIN D 105.8 NG/ML (30.0-100.0)
== END ==
LOC: M WUC 09:18
PROVIDERS: ATTEND Family Medicine
DX: I13.0 Hypertensive heart and chronic kidney disease with heart failure and stage 1 through stage 4 chronic kidney disease, or unspecified chronic kidney disease (principal); N18.30 Chronic kidney disease, stage 3 unspecified; E78.2 Mixed hyperlipidemia; E55.9 Vitamin D deficiency, unspecified; I50.9 Heart failure, unspecified

== ENCOUNTER → 2021-11-29 | Outpatient (REF) | payer MEDICARE ==
[~2021-11-29] MED LIST changes: +FLUT15.820 NARES; +FURO20TA2 PO; +MAGN400T2 PO; +METR-265 PO; +PROB1CAP10 PO
[2021-11-29 17:42] LABS: HEMATOCRIT 41.8 % (36.0-47.0); HEMOGLOBIN 13.6 g/dl (12.0-15.5); MEAN CORPUSCULAR HEMOGLOBIN 29.4 pg (27.0-33.0); MEAN CORPUSCULAR HGB CONC 32.5 g/dl (32.0-36.5); MEAN CORPUSCULAR VOLUME 90.5 fl (80.0-96.0); PLATELET COUNT, AUTOMATED 595 10^3/uL (150-450); RED BLOOD COUNT 4.62 10^6/uL (4.00-5.40); WHITE BLOOD COUNT 10.7 10^3/uL (4.0-10.0)
[2021-11-29 18:19] LABS: CALCIUM LEVEL 9.5 MG/DL (8.8-10.2); CREATININE FOR GFR 1.34 MG/DL (0.55-1.30); GLOMERULAR FILTRATION RATE 40.4 (>32); MAGNESIUM LEVEL 1.7 MG/DL (1.8-2.4); POTASSIUM SERUM 3.8 MEQ/L (3.5-5.1)
== END ==
LOC: M SFHCADAM 14:42
PROVIDERS: ATTEND Family Medicine
DX: K57.92 Diverticulitis of intestine, part unspecified, without perforation or abscess without bleeding (principal); N17.9 Acute kidney failure, unspecified; N18.30 Chronic kidney disease, stage 3 unspecified; E87.6 Hypokalemia; R60.0 Localized edema

== ENCOUNTER → 2022-02-07 | Outpatient (CLI) | payer MEDICARE ==
[2022-02-07 13:38] LABS: CALCIUM LEVEL 9.6 MG/DL (8.8-10.2); CREATININE FOR GFR 1.32 MG/DL (0.55-1.30); MAGNESIUM LEVEL 2.3 MG/DL (1.8-2.4); POTASSIUM SERUM 4.6 MEQ/L (3.5-5.1)
== END ==
LOC: M WUC 09:16
PROVIDERS: ATTEND Family Medicine
DX: R60.0 Localized edema (principal); I13.10 Hypertensive heart and chronic kidney disease without heart failure, with stage 1 through stage 4 chronic kidney disease, or unspecified chronic kidney disease; N18.32 Chronic kidney disease, stage 3b

== ENCOUNTER → 2022-05-03 | Outpatient (CLI) | payer MEDICARE | LOC: M LABSMTC 10:16 | PROVIDERS: ATTEND Anesthesiology | DX: Z01.812 Encounter for preprocedural laboratory examination (principal); Z20.822 Contact with and (suspected) exposure to COVID-19 ==

== ENCOUNTER 2022-05-04 09:30 | Day surgery (SDC) | payer MEDICARE ==
[~2022-05-04] VITALS: Ht 152.4 cm; Wt 67.6 kg
[~2022-05-04 09:30] MED LIST changes: +NS 1,000 ML IV ONE
[2022-05-04] MEDS ORDERED: propofoL 500 MG/50 ML VIAL As Ordered ONE (10:49)
[2022-05-04] MEDS ORDERED: LIDOCAINE 2% 100MG/5ML SDV (FOR ANES.) As Ordered ONE (11:57)
[2022-05-04] MEDS ORDERED: fentaNYL 100 MCG/2 ML INJECTION As Ordered ONE (11:58)
[2022-05-04 13:26] VITALS: BP 133/60
== END 2022-05-04 13:42 | disposition home or self-care (01) ==
LOC: M OPP 09:30
PROVIDERS: ATTEND Surgery
DX: Z86.010 Personal history of colon polyps (principal); K30 Functional dyspepsia; K57.30 Diverticulosis of large intestine without perforation or abscess without bleeding; D12.2 Benign neoplasm of ascending colon; K44.9 Diaphragmatic hernia without obstruction or gangrene; I10 Essential (primary) hypertension; K21.9 Gastro-esophageal reflux disease without esophagitis; M81.0 Age-related osteoporosis without current pathological fracture; F32.A Depression, unspecified; J45.909 Unspecified asthma, uncomplicated; Z86.73 Personal history of transient ischemic attack (TIA), and cerebral infarction without residual deficits; Z87.891 Personal history of nicotine dependence; Z79.899 Other long term (current) drug therapy; Z80.0 Family history of malignant neoplasm of digestive organs
CPT/HCPCS: 43235; 45380; 88305; J3010

== ENCOUNTER → 2022-05-22 | Outpatient (CLI) | payer MEDICARE ==
[~2022-05-22] MED LIST changes: -NS 1,000 ML IV ONE
== END ==
LOC: M PLALAB 15:49
PROVIDERS: ATTEND Physician Assistant
DX: M25.562 Pain in left knee (principal)

== ENCOUNTER → 2022-05-25 | Outpatient (CLI) | payer MEDICARE | LOC: M WHC 11:21 | PROVIDERS: ATTEND Physician Assistant | DX: R59.0 Localized enlarged lymph nodes (principal); K11.9 Disease of salivary gland, unspecified ==

== ENCOUNTER → 2022-06-14 | Outpatient (CLI) | payer MEDICARE ==
[~2022-06-14] MED LIST changes: -BENI1TAB3 PO; +OLME20TA55 PO
== END ==
LOC: M SOG 08:25
PROVIDERS: ATTEND Orthopaedic Surgery Adult Reconstructive Orthopaedic Surgery
DX: M25.562 Pain in left knee (principal); M25.762 Osteophyte, left knee

== ENCOUNTER → 2022-08-16 | Outpatient (REF) | payer MEDICARE | LOC: M SFHCDERM 12:43 | PROVIDERS: ATTEND Nurse Practitioner Family | DX: D04.39 Carcinoma in situ of skin of other parts of face (principal) ==

== ENCOUNTER → 2022-11-13 | Outpatient (CLI) | payer MEDICARE ==
[2022-11-13 16:23] LABS: HEMOGLOBIN 13.9 g/dl (12.0-15.5); MEAN CORPUSCULAR HGB CONC 32.3 g/dl (32.0-36.5); PLATELET COUNT, AUTOMATED 307 10^3/uL (150-450); RED BLOOD COUNT 4.48 10^6/uL (4.00-5.40); WHITE BLOOD COUNT 8.9 10^3/uL (4.0-10.0)
[2022-11-13 16:47] LABS: ALBUMIN 3.2 G/DL (3.2-5.2); BILIRUBIN,TOTAL 0.4 MG/DL (0.3-1.2); CALCIUM LEVEL 9.2 MG/DL (8.3-10.6); CHOLESTEROL RISK RATIO 3.2 (<5); CREATININE FOR GFR 1.32 MG/DL (0.55-1.30); FREE T4 1.17 NG/DL (0.89-1.76); HDL CHOLESTEROL 66.7 MG/DL (>40); LDL CHOLESTEROL 124.5 MG/DL (<100); POTASSIUM SERUM 4.3 MMOL/L (3.5-5.1); THYROID STIMULATING HORMONE 2.441 uIU/ML (0.55-4.78); TOTAL PROTEIN 6.4 G/DL (5.7-8.2)
[2022-11-13 16:48] LABS: TOTAL 25(OH) VITAMIN D 73.7 NG/ML (20.0-100.0)
== END ==
LOC: M WUC 14:45
PROVIDERS: ATTEND Family Medicine
DX: E78.2 Mixed hyperlipidemia (principal); R60.0 Localized edema; I50.9 Heart failure, unspecified; N18.30 Chronic kidney disease, stage 3 unspecified

== ENCOUNTER → 2023-02-14 | Outpatient (REF) | payer MEDICARE ==
[~2023-02-14] MED LIST changes: +MONT-5 PO; -SING10TA32 PO
== END ==
LOC: M SFHCDERM 02-15 15:09
PROVIDERS: ATTEND Nurse Practitioner Family
DX: L57.0 Actinic keratosis (principal); L57.8 Other skin changes due to chronic exposure to nonionizing radiation

== ENCOUNTER 2023-10-03 20:12 | Emergency (ER) | payer MEDICARE ==
[2023-10-03] MEDS ORDERED: ACETAMINOPHEN TAB 650MG DOSE (2X325MG) PO ONE (21:00)
[2023-10-03 21:41] LABS: RSV AMPLIFICATION NEGATIVE (NEGATIVE)
[2023-10-04 07:40] LABS: BASO # 0.1 10^3/uL (0.0-0.2); EOS % 0.1 % (0.0-3.0); HEMATOCRIT 44.8 % (36.0-47.0); HEMOGLOBIN 15.2 g/dl (12.0-15.5); LYMPH # 1.7 10^3/uL (1.5-5.0); LYMPH % 17.3 % (24.0-44.0); MEAN CORPUSCULAR HEMOGLOBIN 30.8 pg (27.0-33.0); MEAN CORPUSCULAR HGB CONC 33.9 g/dl (32.0-36.5); MEAN CORPUSCULAR VOLUME 90.7 fl (80.0-96.0); MONO % 17.9 % (2.0-8.0); NEUTROPHILS # 6.3 10^3/uL (1.5-8.5); NEUTROPHILS % 63.3 % (36.0-66.0); PLATELET COUNT, AUTOMATED 252 10^3/uL (150-450); RED BLOOD COUNT 4.94 10^6/uL (4.00-5.40)
[2023-10-04 08:02] LABS: CALCIUM LEVEL 8.8 MG/DL (8.3-10.6); GLOMERULAR FILTRATION RATE 56.4 (>32)
[2023-10-04 08:14] LABS: PROCALCITONIN 0.33 ng/ml
[2023-10-04 08:59] LABS: MONO # 1.8 10^3/uL (0.0-0.8)
[2023-10-04] MEDS ORDERED: OSELTAMIVIR PHOSPHATE 75 MG CAP (TAMIFLU) PO ONE (09:15)
[2023-10-04] MEDS ORDERED: OSEL75CA PO (09:16)
[2023-10-04 09:49] VITALS: BP 149/71; TEMP 97.8; O2SAT 95
== END 2023-10-04 09:40 | disposition home or self-care (01) ==
LOC: M ED 20:12
DX: J09.X2 Influenza due to identified novel influenza A virus with other respiratory manifestations (principal); I10 Essential (primary) hypertension; J44.9 Chronic obstructive pulmonary disease, unspecified; K21.9 Gastro-esophageal reflux disease without esophagitis; Z79.82 Long term (current) use of aspirin; Z79.899 Other long term (current) drug therapy; Z79.83 Long term (current) use of bisphosphonates

== ENCOUNTER → 2023-12-12 | Outpatient (CLI) | payer MEDICARE ==
[~2023-12-12] MED LIST changes: +OSEL75CA PO
[2023-12-12 20:18] LABS: HEMATOCRIT 43.6 % (36.0-47.0); HEMOGLOBIN 14.2 g/dl (12.0-15.5); MEAN CORPUSCULAR HEMOGLOBIN 31.1 pg (27.0-33.0); MEAN CORPUSCULAR HGB CONC 32.6 g/dl (32.0-36.5); MEAN CORPUSCULAR VOLUME 95.4 fl (80.0-96.0); PLATELET COUNT, AUTOMATED 287 10^3/uL (150-450); RED BLOOD COUNT 4.57 10^6/uL (4.00-5.40); WHITE BLOOD COUNT 8.6 10^3/uL (4.0-10.0)
[2023-12-12 20:44] LABS: ALBUMIN 3.3 G/DL (3.2-5.2); BILIRUBIN,TOTAL 0.6 MG/DL (0.3-1.2); CALCIUM LEVEL 8.9 MG/DL (8.3-10.6); CREATININE FOR GFR 1.1 MG/DL (0.55-1.30); GLOMERULAR FILTRATION RATE 50.5 (>32); PERCENT SATURATION 39.3 % (13.2-45.0); POTASSIUM SERUM 4.5 MMOL/L (3.5-5.1); TOTAL PROTEIN 6.7 G/DL (5.7-8.2)
[2023-12-12 20:45] LABS: FERRITIN 41.2 NG/ML (7.3-270.7)
== END ==
LOC: M WUC 15:37
PROVIDERS: ATTEND Family Medicine
DX: K11.20 Sialoadenitis, unspecified (principal); I11.9 Hypertensive heart disease without heart failure; D50.9 Iron deficiency anemia, unspecified

== ENCOUNTER → 2024-05-02 | Outpatient (REF) | payer MEDICARE | LOC: M SFHCDERM 17:25 | PROVIDERS: ATTEND Nurse Practitioner Family | DX: L57.8 Other skin changes due to chronic exposure to nonionizing radiation (principal); B07.9 Viral wart, unspecified ==

== ENCOUNTER → 2025-01-14 | Outpatient (CLI) | payer MEDICARE ==
[~2025-01-14] MED LIST changes: -ADV500INH INH; +ADVA1AER10 INH
[2025-01-14 15:10] LABS: HEMATOCRIT 43.3 % (36.0-47.0); HEMOGLOBIN 13.8 g/dl (12.0-15.5); MEAN CORPUSCULAR HEMOGLOBIN 30.8 pg (27.0-33.0); MEAN CORPUSCULAR HGB CONC 31.9 g/dl (32.0-36.5); MEAN CORPUSCULAR VOLUME 96.7 fl (80.0-96.0); PLATELET COUNT, AUTOMATED 357 10^3/uL (150-450); RED BLOOD COUNT 4.48 10^6/uL (4.00-5.40)
[2025-01-14 15:24] LABS: ALBUMIN 3.3 G/DL (3.2-5.2); BILIRUBIN,TOTAL 0.4 MG/DL (0.3-1.2); CALCIUM LEVEL 9.6 MG/DL (8.3-10.6); CREATININE FOR GFR 1.06 MG/DL (0.55-1.30); FERRITIN 53.5 NG/ML (7.3-270.7); GLOMERULAR FILTRATION RATE 51.5 (>32); POTASSIUM SERUM 4.7 MMOL/L (3.5-5.1)
[2025-01-14 15:25] LABS: TOTAL 25(OH) VITAMIN D 54.8 NG/ML (20.0-100.0)
== END ==
LOC: M WUC 11:28
PROVIDERS: ATTEND Family Medicine
DX: T45.2X1S Poisoning by vitamins, accidental (unintentional), sequela (principal); N18.31 Chronic kidney disease, stage 3a; D50.9 Iron deficiency anemia, unspecified; I11.9 Hypertensive heart disease without heart failure